=== PATIENT | female | born 1955 | race Caucasian/White ===

== ENCOUNTER 2018-09-09 12:05 | Emergency (ER) | payer BC ==
[~2018-09-09] VITALS: Ht 157.5 cm; Wt 93.2 kg
[2018-09-09 12:11] VITALS: Ht 157.5 cm; Wt 93.2 kg
[2018-09-09] MEDS ORDERED: K-DUR20 MEQ PO (12:12)
[2018-09-09] MEDS ORDERED: BUMEX2 MG PO (12:12)
[2018-09-09] MEDS ORDERED: ASPIRIN81 MG PO (12:13)
[2018-09-09] MEDS ORDERED: MELATONIN10 M1 PO (12:13)
[2018-09-09] MEDS ORDERED: CALCIUM 500 +1 EAC3 PO (12:13)
[2018-09-09] MEDS ORDERED: CYCLOBENZAPRINE10 MG PO (13:21)
[2018-09-09] MEDS ORDERED: ACETAMINOPHEN500 M1 PO (13:21)
[2018-09-09] MEDS ORDERED: IBUPROFEN800 MG PO (13:21)
[2018-09-09 13:55] VITALS: BP 149/85
== END 2018-09-09 13:55 | disposition home or self-care (01) ==
LOC: D.ER 12:05
DX: R51 Headache (principal); S00.03XA Contusion of scalp, initial encounter; W19.XXXA Unspecified fall, initial encounter; Y93.89 Activity, other specified; Y92.89 Other specified places as the place of occurrence of the external cause

== ENCOUNTER → 2019-01-23 12:18 | Outpatient (CLI) | payer BC ==
[2018-09-09 12:11] VITALS: BMI 37.6
[~2019-01-23 12:18] MED LIST: ACETAMINOPHEN500 M1 PO; ASPIRIN81 MG PO; BUMEX2 MG PO; CALCIUM 500 +1 EAC3 PO; CYCLOBENZAPRINE10 MG PO; IBUPROFEN800 MG PO; K-DUR20 MEQ PO; MELATONIN10 M1 PO
== END | disposition home or self-care (01) ==
LOC: D.LABREF 12:18
PROVIDERS: ATTEND Orthopaedic Surgery
DX: M17.12 Unilateral primary osteoarthritis, left knee (principal)

== ENCOUNTER 2019-01-30 16:49 | Inpatient (IN) | payer MEDICARE, BC ==
[~2019-01-30] VITALS: Ht 157.5 cm; Wt 93.2 kg
[2019-02-20] MEDS ORDERED: ZANAFLEX4 MG PO (08:11)
[2019-02-20] MEDS ORDERED: LIPITOR20 MG PO (08:11)
[2019-02-20] MEDS ORDERED: CYMBALTA60 MG PO (08:12)
[2019-02-20 09:07] LABS: BASOPHILS 0.4 % (0-2); EOSINOPHILS 2.6 % (0-7); HEMATOCRIT 37.1 % (36.0-48.0); HEMOGLOBIN 11.4 g/dL (12-16); IMMATURE GRANULOCYTES 0.4 % (0-5); LYMPHOCYTES 32.2 % (15-50); MCH 26.9 pg (26.0-34.0); MCHC 30.7 g/dL (31.0-37.0); MCV 87.5 fL (80.0-100.0); MEAN PLATELET VOLUME 9.4 fL (7.4-10.4); MONOCYTES 6.1 % (2-11); NEUTROPHILS 58.3 % (40-80); PLATELET COUNT 220 10x3/uL (130-400); RBC 4.24 10x6/uL (4.00-5.40); RDW 14.7 % (11.5-14.5); WBC 4.6 10x3/uL (4.8-10.8)
[2019-02-20 09:08] LABS: APPEARANCE CLEAR (CLEAR); BILIRUBIN NEGATIVE (NEGATIVE); COLOR YELLOW (YELLOW); GLUCOSE NEGATIVE (NEGATIVE); KETONE NEGATIVE (NEGATIVE); NITRITE NEGATIVE (NEGATIVE); PROTEIN NEGATIVE (NEGATIVE); SPECIFIC GRAVITY 1.015 (1.005-1.020); UROBILINOGEN NORMAL (NORMAL)
[2019-02-20 09:18] LABS: APTT 27.6 SECONDS (22.8-39.4); INR 0.98 (0.85-1.17); PROTIME 12.5 SECONDS (11.6-15.0)
[2019-02-20 09:19] LABS: CALC OSMOLALITY 287 mosm/kg (275-300); CALCIUM 8.9 mg/dL (8.5-10.1); CARBON DIOXIDE 33.8 mmol/L (21.0-32.0); CHLORIDE - SERUM 104 mmol/L (98-107); CREATININE - SERUM 0.5 mg/dL (0.6-1.3); GLUCOSE 95 mg/dL (74-106); POTASSIUM - SERUM 3.7 mmol/L (3.5-5.1); SODIUM 144 mmol/L (136-145); UREA NITROGEN 14 mg/dL (7-18); eGFR NON AFRICAN AMERICAN > 90 mL/min (90-120)
[2019-02-21 09:01] VITALS: BP 131/63; BMI 37.6
--- NOTE | 2019-02-21 21:34 | NUR ---
SHAWNA REF# [id number] LOT# [id number] EXP. 08/05/2023
--- NOTE | 2019-02-21 22:33 | NUR ---
BACTISURE WOUND LAVAGE 1000ML REF# [id number] LOT# [id number] EXP 10/09/2020
--- NOTE | 2019-02-21 23:30 | NUR ---
PT ARRIVED TO FLOOR VIA BED, AOX4 WITHOUT DISTRESS. VSS, SEE FLOWSHEET. AT BEDSIDE. IV LEFT WRIST INFUSING 1/2NS @ 50. LEFT KNEE IN EVON WRAP, CDI. SWELLING TO LOWER LEG, SLIGHT BRUISING AROUND ANKLE. WOUND VAC IN PLACE TO KNEE. PT STATES LEG IS NUMB BUT IS ABLE TO MOVE TOES. STATES NO PAIN. REQUESTED AND GIVEN ICE CHIPS. DENIES OTHER NEEDS. CL IN REACH, WILL CTM
[2019-02-21 23:31] VITALS: BP 142/55
[2019-02-21 23:45] VITALS: BP 132/57
[2019-02-21 23:47] VITALS: BP 142/55; Ht 157.5 cm; Wt 93.2 kg
[2019-02-22] VITALS (10 sets, daily range): BP systolic 107–137; BP diastolic 52–68
--- NOTE | 2019-02-22 05:00 | NUR ---
CPM ON AT THIS TIME
[2019-02-22 05:34] LABS: HEMOGLOBIN 10.1 g/dL (12-16); MCH 26.6 pg (26.0-34.0); MCHC 29.7 g/dL (31.0-37.0); RBC 3.79 10x6/uL (4.00-5.40); RDW 15.1 % (11.5-14.5)
[2019-02-22 05:43] LABS: MCV 89.7 fL (80.0-100.0); WBC 8.1 10x3/uL (4.8-10.8)
--- NOTE | 2019-02-22 06:10 | NUR ---
PT PLACED ON AND OFF BEDPAN, VOIDED 300ML DARK YELLOW URINE
--- NOTE | 2019-02-22 07:46 | OP ---
PATIENT NAME: REAGAN BURT MEDICAL RECORD: [id number] :53 LOCATION: D.2232 ADMISSION DATE:02/21/19 SURGEON: EZEKIEL JORDAN DO DATE OF OPERATION: 02/21/2019 PROCEDURE PERFORMED: Left total knee arthroplasty. PREOPERATIVE DIAGNOSIS: Left knee osteoarthritis. POSTOPERATIVE DIAGNOSIS: Left knee osteoarthritis. INDICATIONS: Ms. Burt is a 64-year-old female who has had her right knee replaced and the left one was just as bad. She had tried all manners of nonoperative treatments including injections, physical therapy and it started affecting her activities of daily living. When she got to the point where she was ready for it to be done, she is aware of the risks including infection, bleeding, damage to nerves and vessels, need for further surgery, fracture, blood clots, and even and she signed the consent. SURGEON: Ezekiel Jordan DO DESCRIPTION OF PROCEDURE: The patient received a block by anesthesia in the preoperative area once we were able to go to the OR. She was taken to the operative suite, laid in supine position, given general anesthetic. LMA was placed. The left lower extremity was then prepped and draped in sterile fashion. She was given 2 grams of Ancef and 80 mg gentamicin and 1 gram of TXA prior to the procedure. Once it was prepped and draped, a time-out was performed, everybody was in agreement as to the correct side, site, patient and procedure. The incision was then made after being marked out and covered with Ioban over the anterior knee. Sterile dissection was made down to the capsule. Medial parapatellar approach was then used to enter the knee joint. Any bleeding was coagulated with Aquamantys at that time. The fat pad was then partially removed. The patella was everted and it was milled down, sized to be a #31 patella. The knee was then flexed and the femoral canal was entered and distal femur was cut. Once the distal femur was cut, the proximal tibia was cut off the lateral side, which was the most worn side. The proximal tibia that had been cut was removed and the menisci were removed. The knee was brought to extension. Lamina woodworking machine feeder was used to open it up, any bleeding was coagulated with Aquamantys. The extension block then fit very well and good medial and lateral stability. The knee was then flexed up and the femur sized to be 62.5. Once that was put, the holes were drilled. The 4-in-1 cutting block was put on. The sheila wing was used to ensure it would not notch. The femur was then cut and excess bone was removed. The trial was then put on and the tibia was floated and ranged and rotation was marked. The tibia was removed and the patellar implant was drilled for and the lug holes for the femur were drilled. The trial was removed. The tibia was exposed. Size of to be a #71, #71 was drilled and punched and extra holes were put in the tibia for the cement. Cement was then prepared and put in the tibia on the implant impacted into place. Excess cement was removed. The femur was then impacted on, #10 poly was put in between. Knee was brought into extension and the patella was irrigated out and the cement was put in the patella and the screw was put on and held into place. Excess cement was removed OPERATIVE REPORT [id number] REAGAN BURT from it. We then irrigated the knee with a liter of Bactisure and 3 liters of normal saline. We then sized up to a 14 poly and did a #14 E poly anterior stabilized and this was locked into place. The knee was then irrigated one more time. Any bleeding was coagulated with Aquamantys and then the capsule was closed with #2 Ethibond in a qpistf-nl-rifgd fashion and then the skin with 2-0 Vicryl in inverted interrupted fashion placed on the knee and the Prevena placed on the knee and wrapped around with an Pradeep wrap. She was then awakened and taken to the recovery in stable condition. Blood loss approximately 400 mL. COMPLICATIONS: None. TRANSINT:[id number] Voice Confirmation ID: [id number] DOCUMENT ID: [id number] EZEKIEL JORDAN DO at 0746 CC: [id number] DICTATION DATE: 02/21/192311 OUTREACH WORKER: 02/22/19 0224 ADM IN [facility] [address] [place] [address]
--- NOTE | 2019-02-22 08:09 | NUR ---
PATIENT RECIEVED RESTING IN BED CPM IN PLACE. DENIES PAIN DUE TO BLOCK WITH SURGERY. DRESSING C/D/I. CL IN REACH
--- NOTE | 2019-02-22 14:57 | MORECARE ---
CASE MANAGEMENT DISCHARGE SUMMARY PATIENT: REAGAN PORTER UNIT: [id number] ADM DATE: 02/21/19 AGE: 64 : 54 SEX: F ROOM/BED: D.2232 AUTHOR: RAMANDOC PHYSICIAN: REFERRING PHYSICIAN: YUN JORDAN DO DATE OF SERVICE: 02/22/19 Discharge Plan Patient Name: REAGAN PORTER Facility: [facility]:[place] : 1955 Planned Disposition: Home Anticipated Discharge Date: 02/24/19 Discharge Date: Expected LOS: 3 Initial Reviewer: [email or web address] Initial Review Date: 02/22/2019 Generated: 02/22/19 3:57 pm Comments DCP- Discharge Planning Updated by [email or web address]: Rabia Singh on 02/22/19 1:[address] Patient Name: REAGAN PORTER Admission Status: Elective Accout number: [id number] Admission Date: 02-21-2019 : 1955 Admission Diagnosis: Attending: YUN JORDAN Current LOS: 1 Anticipated DC Date: 02-24-2019 Planned Disposition: Home Primary Insurance: MEDICARE A & B Discharge Planning Comments: CM met with patient to complete initial dc planning assessment. CM educated patient on the CM role and verbal consent given by patient to complete assessment. Patient lives at home with spouse. At discharge patient plans to return and feels this is a safe discharge. CM discussed availability of home health, rehab services, and medical equipment. Patient denied known discharge needs at this time. She will require outpatient physical therapy and she states she would like this done at [facility]. I spoke with Kelly and first visit will be February 27 at 8am. Order and clinical faxed to [phone]. CM will continue to follow and will assist as needed with dc plans/needs. Architectural Model Maker: Rabia Singh DCPIA - Discharge Planning Initial Assessment Updated by [id number]: Rabia Singh on 02/22/19 2:54 pm * Is the patient Alert and Oriented? Yes * How many steps to enter\exit or inside your home? 2w/rails/0 * PCP Dr. Pena * Pharmacy [facility] * Preadmission Environment Home with Family * ADLs Independent * Equipment Grab Bars Other Shower Chair * Other Equipment Gait belt, grabber, polar ice for knee, CPM * List name and contact numbers for known caregivers / representatives who currently or will assist patient after discharge: Andrew Velarde spouse - Sebastian [phone] c - [phone] * Verbal permission to speak to the caregivers and representatives has been obtained from the patient. Yes * Community resources currently utilized None * Additional services required to return to the preadmission environment? Yes * Can the patient safely return to the preadmission environment? Yes * Has this patient been hospitalized within the prior 30 days at any hospital? No External Providers External Provider: OTHER-OTHER Next Contact Date: Service Request Date: Service Type: Resolution: Reviewer: Comments: Patient Name: REAGAN PORTER Page 02305 at 1457 All edits/amendments must be made on the electronic document DICTATION DATE: 02/22/191456 INSTRUCTIONAL TECHNOLOGY COACH: EVA 02/22/191456 RPT#: [id number] DC DATE: STATUS: ADM IN [facility] [address] [place] [address] END OF REPORT
--- NOTE | 2019-02-22 23:30 | NUR ---
REC'D CHGE OF SHIFT WALKING ROUNDS AAO X3 CPM LEFT LEG.TOLERATING WELL.NEUROVASCULAR STATUS WNL PEDAL PULSE PRESENT,WIGGLES TOES AND DORSIFLEXES DENIES CALF PAIN OR TENDERNESS ON DORSIFLEXION. WOUND VAC INTACT.WILL CONTINUE TO MONITOR FOR ANY CHGES AND FOLLOW CURRENT PLAN OF CARE.
[2019-02-23 01:26] VITALS: BP 120/64
[2019-02-23 04:41] VITALS: BP 154/74
--- NOTE | 2019-02-23 05:00 | NUR ---
I have reviewed this patient and I concur with the Shift Assessment completed by the Licensed Practical Nurse today this shift.
[2019-02-23 06:33] LABS: BASOPHILS 0.1 % (0-2); EOSINOPHILS 0.6 % (0-7); HEMOGLOBIN 8.3 g/dL (12-16); IMMATURE GRANULOCYTES 0.4 % (0-5); LYMPHOCYTES 22.8 % (15-50); MCH 26.3 pg (26.0-34.0); MCHC 29.6 g/dL (31.0-37.0); MCV 88.9 fL (80.0-100.0); MEAN PLATELET VOLUME 10.1 fL (7.4-10.4); MONOCYTES 11.2 % (2-11); NEUTROPHILS 64.9 % (40-80); PLATELET COUNT 195 10x3/uL (130-400); RBC 3.15 10x6/uL (4.00-5.40); RDW 15.3 % (11.5-14.5)
--- NOTE | 2019-02-23 07:00 | NUR ---
PATIENT RECIEVED RESTING IN BED. POST OP DAY 2 FOLLOWING LEFT TOTAL KNEE. RATES PAIN AT 4, LEFT FOREARM SWOLLEN SLIGHTLY WITH IV LEAKING. REMOVED IV WITH NO REDNESS AT SITE. RESITED IV TO UPPER LEFT FOREARM 22G, PATIENT TOLERATED WELL. CL IN REACH
[2019-02-23 07:08] LABS: CALC OSMOLALITY 279 mosm/kg (275-300); CALCIUM 8.1 mg/dL (8.5-10.1); CARBON DIOXIDE 31.7 mmol/L (21.0-32.0); CHLORIDE - SERUM 103 mmol/L (98-107); CREATININE - SERUM 0.6 mg/dL (0.6-1.3); GLUCOSE 127 mg/dL (74-106); MAGNESIUM - SERUM 1.9 mg/dL (1.8-2.4); POTASSIUM - SERUM 3.5 mmol/L (3.5-5.1); SODIUM 139 mmol/L (136-145); UREA NITROGEN 12 mg/dL (7-18); eGFR NON AFRICAN AMERICAN > 90 mL/min (90-120)
--- NOTE | 2019-02-23 08:02 | CN ---
PATIENT NAME:REAGAN PORTER MEDICAL RECORD: [id number] : 53 LOCATION:D.MS [place] ADMIT DATE: 02/21/19 ACCOUNT: [id number] CONSULTING PHYSICIAN: AGATHA PORTILLO MD REFERRING PHYSICIAN: YUN JORDAN DO DATE OF CONSULTATION: 02/22/2019 REASON FOR CONSULTATION: Medical management. HISTORY OF PRESENT ILLNESS: This is a 64-year-old female who was admitted by Dr. Jordan for left knee arthroplasty. This was done last night. She has a history of depression, arthritis, lower extremity edema and I am consulted for medical management. She has no acute complaints at this time. PAST MEDICAL AND SURGICAL HISTORY: Depression, osteoarthritis, lower extremity edema, obesity. PAST SURGICAL HISTORY: Hysterectomy, , cholecystectomy, bilateral knee arthroscopies, gastric bypass, lysis of adhesions by Dr. Amaya. She has had right knee replacement and now left knee replacement. ALLERGIES: BACTRIM. HOME MEDICATIONS: Include potassium 20 mEq once a day, Bumex 2 mg once a day, tizanidine 4 mg at bedtime, atorvastatin 20 mg once a day, Cymbalta 60 mg once a day, aspirin 81 mg once a day, ibuprofen p.r.n., calcium plus vitamin D once a day, melatonin 10 mg at bedtime. HABITS: Never smoked. No alcohol or drugs. 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 FAMILY HISTORY: Father at 67. He had alcoholism, liver cancer. Mother at 67 of intracranial hemorrhage. REVIEW OF SYSTEMS: GENERAL: No major weight changes. HEENT: Unremarkable. CARDIAC: No chest pain or palpitations. RESPIRATORY: No shortness of breath. No diagnoses of asthma or emphysema. GASTROINTESTINAL: No heartburn. No diarrhea or constipation. GENITOURINARY: No significant problems there. MUSCULOSKELETAL: Has arthritic aches and pains and has had joint replacement and now another. NEUROLOGIC: No migraines or seizures. PSYCHIATRIC: She has some depression. PHYSICAL EXAMINATION: VITAL SIGNS: Temperature 98.4, pulse 104, respirations 20, blood pressure 109/64, O2 sat 97%. GENERAL: She appears in no acute distress. She is awake and alert. SKIN: Warm and dry. HEENT: Grossly within normal limits. NECK: Supple. No JVD or bruit. HEART: Mild tachycardia. CONSULT REPORT [id number] REAGAN PORTER LUNGS: Fairly clear. ABDOMEN: Soft, nontender. EXTREMITIES: No edema at this time. LABORATORY DATA: This morning showed a white count of 8100, hemoglobin 10.1, hematocrit 34.0. ASSESSMENT: 1. Depression. 2. Lower extremity edema. 3. Osteoarthritis. PLAN: We will continue her usual medications. We will continue her postoperative course. Other tests and procedures as warranted. TRANSINT:[id number] Voice Confirmation ID: [id number] DOCUMENT ID: [id number] AGATHA PORTILLO MD at 0802 CC: [id number] DICTATION DATE: 02/22/19 1304 FLAT BED KNITTER: 02/22/19 1322 ADM IN [facility] [address] [place] [address]
[2019-02-23 12:54] VITALS: BP 106/70
--- NOTE | 2019-02-23 18:41 | NUR ---
PATIENT RESTING IN BED WITH NO NEEDS VICED, AT BEDSIDE AND CL IN REACH
[2019-02-23 18:45] VITALS: BP 99/56
[2019-02-23 20:00] VITALS: BP 122/42
[2019-02-24] VITALS: BP 116/49
[2019-02-24 04:00] VITALS: BP 96/45
[2019-02-24 05:42] LABS: BASOPHILS 0.2 % (0-2); EOSINOPHILS 1.4 % (0-7); HEMATOCRIT 26.9 % (36.0-48.0); IMMATURE GRANULOCYTES 0.7 % (0-5); LYMPHOCYTES 23.8 % (15-50); MCH 26.4 pg (26.0-34.0); MCHC 29.7 g/dL (31.0-37.0); MCV 88.8 fL (80.0-100.0); MONOCYTES 8.9 % (2-11); PLATELET COUNT 186 10x3/uL (130-400); RBC 3.03 10x6/uL (4.00-5.40); RDW 15.4 % (11.5-14.5); WBC 5.6 10x3/uL (4.8-10.8)
[2019-02-24 06:19] LABS: CALC OSMOLALITY 280 mosm/kg (275-300); CALCIUM 8.3 mg/dL (8.5-10.1); CARBON DIOXIDE 32.8 mmol/L (21.0-32.0); CHLORIDE - SERUM 105 mmol/L (98-107); CREATININE - SERUM 0.6 mg/dL (0.6-1.3); GLUCOSE 110 mg/dL (74-106); MAGNESIUM - SERUM 1.9 mg/dL (1.8-2.4); POTASSIUM - SERUM 3.7 mmol/L (3.5-5.1); SODIUM 141 mmol/L (136-145); UREA NITROGEN 9 mg/dL (7-18); eGFR NON AFRICAN AMERICAN > 90 mL/min (90-120)
--- NOTE | 2019-02-24 07:40 | NUR ---
PATIENT IN BED WITH NO COMPLAINTS OR SIGNS OF DISTRESS. IV INTACT. CPM ON. CALL LIGHT WITHI NREACH.
[2019-02-24 08:47] VITALS: BP 127/56
[2019-02-24] MEDS ORDERED: OXYCODONE HCL5 M1 PO (12:26)
[2019-02-24] MEDS ORDERED: KEFLEX500 MG PO (12:26)
[2019-02-24] MEDS ORDERED: BAYER CHEWABLE81 MG PO (12:26)
[2019-02-24 13:13] VITALS: BP 124/37
--- NOTE | 2019-02-24 13:49 | MORECARE ---
CASE MANAGEMENT DISCHARGE SUMMARY PATIENT: REAGAN PORTER UNIT: [id number] ADM DATE: 02/21/19 AGE: 64 : 53 SEX: F ROOM/BED: D.2232 AUTHOR: LISBET CAMARGO PHYSICIAN: REFERRING PHYSICIAN: YUN JORDAN DO DATE OF SERVICE: 02/24/19 Discharge Plan Patient Name: REAGAN PORTER Facility: [facility]:[place] : 1955 Planned Disposition: Home Anticipated Discharge Date: 02/24/19 Discharge Date: Expected LOS: 3 Initial Reviewer: [email or web address] Initial Review Date: 02/22/2019 Generated: 02/24/19 2:49 pm Comments DCP- Discharge Planning Updated by [email or web address]: Rabia Singh on 02/24/19 12:[address] Patient Name: REAGAN PORTER Encounter No: [id number] : 1955 Primary Insurance: MEDICARE A & B Anticipated DC Date: 02-24-2019 Planned Disposition: Home External Planned Provider: : DCP follow-up note: Patient and family in agreement with discharge plan. No changes to plan. Case management will follow and assist as needed. Rabia Singh DCP- Discharge Planning Updated by [email or web address]: Rabia Singh on 02/22/19 1:[address] Patient Name: REAGAN PORTER Admission Status: Elective Accout number: [id number] Admission Date: 02-21-2019 : 1955 Admission Diagnosis: Attending: YUN JORDAN Current LOS: 1 Anticipated DC Date: 02-24-2019 Planned Disposition: Home Primary Insurance: MEDICARE A & B Discharge Planning Comments: CM met with patient to complete initial dc planning assessment. CM educated patient on the CM role and verbal consent given by patient to complete assessment. Patient lives at home with spouse. At discharge patient plans to return and feels this is a safe discharge. CM discussed availability of home health, rehab services, and medical equipment. Patient denied known discharge needs at this time. She will require outpatient physical therapy and she states she would like this done at [facility] and [facility]. I spoke with Kelly and first visit will be February 27 at 8am. Order and clinical faxed to [phone]. CM will continue to follow and will assist as needed with dc plans/needs. Airline Captain: Rabia Singh DCPIA - Discharge Planning Initial Assessment Updated by [email or web address]: Rabia Singh on 02/22/19 2:54 pm * Is the patient Alert and Oriented? Yes * How many steps to enter\exit or inside your home? 2w/rails/0 * PCP Dr. Pena * Pharmacy [facility] * Preadmission Environment Home with Family * ADLs Independent * Equipment Grab Bars Other Shower Chair * Other Equipment Gait belt, grabber, polar ice for knee, CPM * List name and contact numbers for known caregivers / representatives who currently or will assist patient after discharge: Andrew [facility] [phone] - [phone] * Verbal permission to speak to the caregivers and representatives has been obtained from the patient. Yes * Community resources currently utilized None * Additional services required to return to the preadmission environment? Yes * Can the patient safely return to the preadmission environment? Yes * Has this patient been hospitalized within the prior 30 days at any hospital? No Coverage Notice Reviewer: [email or web address] - Rabia Singh Notice Issued Date-Time: 02/23/2019 16:37 Notice Type: IM Discharge Notice Notice Delivered To: Patient Relationship to Patient: Self Juvenile Court Judge Name: Delivery Method: HAND - Hand Delivered Katherine Days: Prior Verbal Notification: Recipient Understood Notice: Yes Recipient Signature: Yes Med Rec Note Co-signed by Attending: Coverage Notice Comment: IMM explained, signed, given, copy placed in MR Last DP export: 02/22/19 1:57 Patient Name: REAGAN PORTER Page 23943 at 1349 All edits/amendments must be made on the electronic document DICTATION DATE: 02/24/191348 MUSIC WORKER: EVA 02/24/19 1349 RPT#: [id number] DC DATE: STATUS: ADM IN [facility] [address] [place] [address] END OF REPORT
--- NOTE | 2019-02-24 15:00 | NUR ---
PATIENT IV REMOVED AT THIS TIME WITH CATH TIP INTACT. RECIEVED DC INSTRUCTIONS AND PRESCRIPTIONS. NO QUESTIONS AT THIS TIME. PROVENA VAC CONNECTED. FAMILY AT SIDE. WAITITNG FOR WC FOR DC. CALL LIGHT WITHIN REACH.
--- NOTE | 2019-02-24 16:24 | NUR ---
PT DISCONNECTED FROM ULTA VAC AND ATTACHED TO PREVENA FOR HOME USE. WOUND VAC [id number] WAS PLACED IN THE SOILED UTILITY ROOM ON MS. [employer] WAS NOTIFIED OF THE D/C AND ART TRACER WAS REQUESTED ON THE WEBSITE. TEACHING PROVIDED FOR PT ABOUT THE PREVENA INCISION MGMT SYSTEM, ITS FUNCTION, TROUBLESHOOTING AND ALARMS. PT WILL RETURN TO DR. JORDAN'S OFFICE ON WEDNESDAY FOR REMOVAL.
--- NOTE | 2019-02-28 08:09 | MORECARE ---
CASE MANAGEMENT DISCHARGE SUMMARY PATIENT: REAGAN PORTER UNIT: [id number] ADM DATE: 02/21/19 AGE: 64 : 53 SEX: F ROOM/BED: D.2232 AUTHOR: LISBET CAMARGO PHYSICIAN: REFERRING PHYSICIAN: YUN JORDAN DO DATE OF SERVICE: 02/28/19 Discharge Plan Patient Name: REAGAN PORTER Facility: [facility]:[place] : 1955 Planned Disposition: Home Anticipated Discharge Date: 02/24/19 Discharge Date: 02/24/2019 Expected LOS: 3 Initial Reviewer: [email or web address] Initial Review Date: 02/22/2019 Generated: 02/28/19 9:09 am Comments DCP- Discharge Planning Updated by [email or web address]: Rabia Singh on 02/24/19 12:[address] Patient Name: REAGAN PORTER Encounter No: [id number] : 1955 Primary Insurance: MEDICARE A & B Anticipated DC Date: 02-24-2019 Planned Disposition: Home External Planned Provider: : DCP follow-up note: Patient and family in agreement with discharge plan. No changes to plan. Case management will follow and assist as needed. Rabia Singh DCP- Discharge Planning Updated by [email or web address]: Rabia Singh on 02/22/19 1:[address] Patient Name: REAGAN PORTER Admission Status: Elective Accout number: [id number] Admission Date: 02-21-2019 : 1955 Admission Diagnosis: Attending: YUN JORDAN Current LOS: 1 Anticipated DC Date: 02-24-2019 Planned Disposition: Home Primary Insurance: MEDICARE A & B Discharge Planning Comments: CM met with patient to complete initial dc planning assessment. CM educated patient on the CM role and verbal consent given by patient to complete assessment. Patient lives at home with spouse. At discharge patient plans to return and feels this is a safe discharge. CM discussed availability of home health, rehab services, and medical equipment. Patient denied known discharge needs at this time. She will require outpatient physical therapy and she states she would like this done at [facility]. I spoke with Kelly and first visit will be February 27 at 8am. Order and clinical faxed to [phone]. CM will continue to follow and will assist as needed with dc plans/needs. Wax Pattern Assembler: Rabia Singh DCPIA - Discharge Planning Initial Assessment Updated by [email or web address]: Rabia Singh on 02/22/19 2:54 pm * Is the patient Alert and Oriented? Yes * How many steps to enter\exit or inside your home? 2w/rails/0 * PCP Dr. Pena * Pharmacy [facility] * Preadmission Environment Home with Family * ADLs Independent * Equipment Grab Bars Other Shower Chair * Other Equipment Gait belt, grabber, polar ice for knee, CPM * List name and contact numbers for known caregivers / representatives who currently or will assist patient after discharge: Andrew [facility] [phone] - [phone] * Verbal permission to speak to the caregivers and representatives has been obtained from the patient. Yes * Community resources currently utilized None * Additional services required to return to the preadmission environment? Yes * Can the patient safely return to the preadmission environment? Yes * Has this patient been hospitalized within the prior 30 days at any hospital? No Coverage Notice Reviewer: [id number] - Rabia Singh Notice Issued Date-Time: 02/23/2019 16:37 Notice Type: IM Discharge Notice Notice Delivered To: Patient Relationship to Patient: Self Medical Scribe Name: Delivery Method: HAND - Hand Delivered Katherine Days: Prior Verbal Notification: Recipient Understood Notice: Yes Recipient Signature: Yes Med Rec Note Co-signed by Attending: Coverage Notice Comment: IMM explained, signed, given, copy placed in MR Last DP export: 02/24/19 12:49 Patient Name: REAGAN PORTER Page 30469 at 0809 All edits/amendments must be made on the electronic document DICTATION DATE: 02/28/19808 REHABILITATION AIDE: EVA 02/28/19808 RPT#: [id number] DC DATE:02/24/19 STATUS: DIS IN [facility] [address] [facility] [place] [address] END OF REPORT
== END 2019-02-24 15:20 | disposition home or self-care (01) | DRG 470 ==
LOC: D.SDCHOLD 02-21 08:35 → D.MS 02-21 08:35 → D.SDCHOLD 02-21 10:45 → D.MS 02-21 23:07
PROVIDERS: Emergency Medicine; ADMIT Orthopaedic Surgery; ATTEND Orthopaedic Surgery
PROC: 0SRD0J9 Replacement of Left Knee Joint with Synthetic Substitute, Cemented, Open Approach (ICD-10-PCS; principal; 2019-02-21 11:00)
DX: M17.12 Unilateral primary osteoarthritis, left knee (principal); R03.0 Elevated blood-pressure reading, without diagnosis of hypertension; F32.9 Major depressive disorder, single episode, unspecified; R60.0 Localized edema; R00.0 Tachycardia, unspecified